=== PATIENT | male | born 1955 | race African-American/Black ===

== ENCOUNTER 2018-09-30 12:46 | Emergency (ER) | payer OTHER ==
[2018-09-30] MEDS: IPRATROPIUM (NEB) 0.5 MG/2.5 ML AMP INH (14:13)
[2018-09-30] MEDS: ALBUTEROL 0.083% (NEB) 2.5 MG/3 ML AMP INH (14:13)
[2018-09-30 14:14] LABS: ADD MAN DIFF? NO
[2018-09-30 14:19] LABS: WHITE BLOOD COUNT 8.9 10^3/ul (4.8-10.8)
[2018-09-30 14:19] LABS: BASOPHIL # 0.1 10^3/ul (0.0-0.1); BASOPHILS % 0.9 % (0.0-2.0); EOSINOPHILS # 0.1 10^3/ul (0.0-0.5); EOSINOPHILS % 1.1 % (0.0-7.0); HEMATOCRIT 33.8 % (42.0-52.0); HEMOGLOBIN 10.5 g/dl (14.0-18.0); LYMPHOCYTES # 0.8 10^3/ul (0.8-2.9); LYMPHOCYTES % 8.5 % (15.0-51.0); MEAN CORPUSCULAR HEMOGLOBIN 31.9 pg (29.0-33.0); MEAN CORPUSCULAR HGB CONC 31.1 g/dl (32.0-37.0); MEAN CORPUSCULAR VOLUME 102.7 fl (82.0-101.0); MEAN PLATELET VOLUME 9.8 fl (7.4-10.4); MONOCYTE # 1.3 10^3/ul (0.3-0.9); MONOCYTES % 14.9 % (0.0-11.0); NEUTROPHIL # 6.6 10^3/ul (1.6-7.5); NEUTROPHILS % 74.2 % (39.0-77.0); PLATELET COUNT 333 10^3/UL (140-415); RED BLOOD COUNT 3.29 10^6/ul (4.70-6.10); RED CELL DISTRIBUTION WIDTH 15.7 % (11.5-14.5)
[2018-09-30 14:22] LABS: ADD UMIC YES; UR ASCORBIC ACID 40 mg/dL (NEGATIVE); UR BILIRUBIN (Dip) NEGATIVE (NEGATIVE); UR BLOOD (Dip) NEGATIVE (NEGATIVE); UR CLARITY SLIGHTLY CLOUDY (CLEAR); UR COLOR YELLOW (YELLOW); UR GLUCOSE (Dip) 1+ mg/dL (NEGATIVE); UR KETONES (Dip) NEGATIVE (NEGATIVE); UR LEUKOCYTE ESTERASE (Dip) NEGATIVE Leu/ul (NEGATIVE); UR NITRITE (Dip) NEGATIVE (NEGATIVE); UR RBC 3 /HPF (0-5); UR SPECIFIC GRAVITY (Dip) 1.019 (1.003-1.030); UR TOTAL PROTEIN (Dip) 1+ mg/dl (NEGATIVE); UR UROBILINOGEN (Dip) NEGATIVE (NEGATIVE); UR WBC 1 /HPF (0-5)
[2018-09-30 14:25] LABS: MODE NASAL CANNULA; MetHgb Venous 0.3 %; Sample Type Blood venous; Site VENOUS LINE; Venous COHb 0.2 %; Venous Fraction OxyHgb 65.2 %; Venous Oxygen Sat 65.5 mmHG (55.0-75.0); Venous Total Hemglobin 11.7 g/dl
[2018-09-30 14:37] LABS: ALANINE AMINOTRANSFERASE 30 IU/L (13-69); ALBUMIN 3.4 g/dl (3.3-4.9); ALBUMIN/GLOBULIN RATIO 0.87; ALKALINE PHOSPHATASE 123 IU/L (42-121); ANION GAP 8 (5-13); ASPARTATE AMINO TRANSFERASE 42 IU/L (15-46); BLOOD UREA NITROGEN 42 mg/dl (7-20); CALCIUM 9.1 mg/dl (8.4-10.2); CARBON DIOXIDE 25 mmol/L (21-31); CHLORIDE 106 mmol/L (97-110); CREATININE 1.18 mg/dl (0.61-1.24); Estimated GFR > 60 mL/min (>60); GLUCOSE 207 mg/dl (70-220); POTASSIUM 5.2 mmol/L (3.5-5.1); SODIUM 139 mmol/L (135-144); TOTAL PROTEIN 7.3 g/dl (6.1-8.1)
[2018-09-30 14:48] LABS: B-TYPE NATRIURETIC PEPTIDE 5980 PG/ML (0-125); TROPONIN-I 0.054 ng/ml (0.000-0.120)
[2018-09-30] MEDS: FUROSEMIDE 40 MG INJ IV (15:26)
== END 2018-09-30 16:43 | disposition home or self-care (01) ==
LOC: E/R 12:46
DX: I11.0 Hypertensive heart disease with heart failure (principal); E11.9 Type 2 diabetes mellitus without complications; I25.2 Old myocardial infarction; I50.22 Chronic systolic (congestive) heart failure; Z79.82 Long term (current) use of aspirin; Z79.4 Long term (current) use of insulin
CPT/HCPCS: 36415; 71045; 80053; 81001; 82803; 83880; 84484; 85025; 93005; 94664; 96374; 99285-25

== ENCOUNTER 2018-10-22 17:46 | Inpatient (IN) | payer OTHER ==
[2018-10-22] MEDS: FUROSEMIDE 40 MG INJ IV (20:42)
[2018-10-22 21:43] LABS: HEMATOCRIT 32.8 % (42.0-52.0); MEAN CORPUSCULAR HEMOGLOBIN 31.3 pg (29.0-33.0); MEAN CORPUSCULAR HGB CONC 30.5 g/dl (32.0-37.0); MEAN CORPUSCULAR VOLUME 102.8 fl (82.0-101.0); MEAN PLATELET VOLUME 9.5 fl (7.4-10.4); PLATELET COUNT 244 10^3/UL (140-415); RED BLOOD COUNT 3.19 10^6/ul (4.70-6.10); RED CELL DISTRIBUTION WIDTH 15.8 % (11.5-14.5)
[2018-10-22 21:43] LABS: WHITE BLOOD COUNT 9.5 10^3/ul (4.8-10.8)
[2018-10-22 21:44] LABS: ADD MAN DIFF? YES; ADD UMIC NO; UR ASCORBIC ACID 20 mg/dL (NEGATIVE); UR BILIRUBIN (Dip) NEGATIVE (NEGATIVE); UR BLOOD (Dip) NEGATIVE (NEGATIVE); UR CLARITY CLEAR (CLEAR); UR COLOR YELLOW (YELLOW); UR GLUCOSE (Dip) NEGATIVE (NEGATIVE); UR KETONES (Dip) NEGATIVE (NEGATIVE); UR LEUKOCYTE ESTERASE (Dip) NEGATIVE Leu/ul (NEGATIVE); UR NITRITE (Dip) NEGATIVE (NEGATIVE); UR TOTAL PROTEIN (Dip) NEGATIVE (NEGATIVE); UR UROBILINOGEN (Dip) NEGATIVE (NEGATIVE)
[2018-10-22 22:03] LABS: ALANINE AMINOTRANSFERASE 21 IU/L (13-69); ALBUMIN 3.5 g/dl (3.3-4.9); ALBUMIN/GLOBULIN RATIO 0.94; ALKALINE PHOSPHATASE 107 IU/L (42-121); ASPARTATE AMINO TRANSFERASE 39 IU/L (15-46); BILIRUBIN,INDIRECT 0.3 mg/dl (0-1.1); BILIRUBIN,TOTAL 0.3 mg/dl (0.2-1.3); BLOOD UREA NITROGEN 57 mg/dl (7-20); CALCIUM 9.6 mg/dl (8.4-10.2); CHLORIDE 97 mmol/L (97-110); CREATININE 1.32 mg/dl (0.61-1.24); Estimated GFR > 60 mL/min (>60); GLUCOSE 170 mg/dl (70-220); LIPASE 39 U/L (23-300); POTASSIUM 4.8 mmol/L (3.5-5.1); SODIUM 145 mmol/L (135-144); TOTAL PROTEIN 7.2 g/dl (6.1-8.1)
[2018-10-22 22:05] LABS: INR 1.17; PT RATIO 1.2
[2018-10-22 22:06] LABS: PARTIAL THROMBOPLASTIN TIME 30.4 Sec (23.0-35.0)
[2018-10-22 22:09] LABS: ANION GAP 10 (5-13)
[2018-10-22 22:10] LABS: CARBON DIOXIDE 38 mmol/L (21-31)
[2018-10-22 22:15] LABS: B-TYPE NATRIURETIC PEPTIDE 8760 PG/ML (0-125); TROPONIN-I 0.037 ng/ml (0.000-0.120)
[2018-10-22] MEDS ORDERED: ONDANSETRON 4 MG INJ IV ×2 (22:30→23:30)
[2018-10-22] MEDS ORDERED: ACETAMINOPHEN 325 MG TAB PO (22:30)
[2018-10-22] MEDS ORDERED: NACL 0.9% 3 ML SYG IV (23:30)
[2018-10-22] MEDS: HEPARIN 5,000 UNIT/1 ML VIAL SC (23:30)
[2018-10-22] MEDS ORDERED: DOCUSATE SODIUM 100 MG CAP PO (23:30)
[2018-10-22] MEDS ORDERED: BISACODYL (EC) 5 MG TAB PO (23:30)
[2018-10-23] LABS: HAAIG REFLEX REFLEX FILED
[2018-10-23 00:08] LABS: UR RBC 2 /HPF (0-5); UR WBC 2 /HPF (0-5)
[2018-10-23 00:12] LABS: CREATININE,URINE RANDOM 31.84 mg/dl (20-370); PROTEIN/CREAT RATIO 0.72 RATIO
[2018-10-23 00:47] LABS: HEPATITIS B SURFACE ANTIGEN NEGATIVE (NEGATIVE)
[2018-10-23 01:05] LABS: HEPATITIS B SURFACE ANTIBODY NEGATIVE (NEGATIVE)
[2018-10-23 01:05] LABS: HEPATITIS B CORE ANTIBODY NEGATIVE (NEGATIVE); HEPATITIS C VIRAL ANTIBODY NEGATIVE (NEGATIVE)
[2018-10-23 05:09] LABS: RETICULOCYTE COUNT # 0.095 X10^6 (0.020-0.110); RETICULOCYTE COUNT % 2.9 % (0.5-1.5)
[2018-10-23 05:09] LABS: RETICULOCYTE RBC 3.28
[2018-10-23 05:23] LABS: IRON 89 ug/dl (35-150)
[2018-10-23 05:25] LABS: CREATINE KINASE 57 IU/L (23-200)
[2018-10-23 05:32] LABS: % IRON SATURATION 27 % SAT (22-52); TOTAL IRON BINDING CAPACITY 335 ug/dl (241-421)
[2018-10-23 05:36] LABS: HEMOGLOBIN A1C 10.8 % (0-5.9)
[2018-10-23 05:39] LABS: CK INDEX 4.4; TROPONIN-I 0.054 ng/ml (0.000-0.120)
[2018-10-23 05:41] LABS: CK-MB 2.52 ng/ml (0.0-2.4)
[2018-10-23 06:53] LABS: FOLATE > 20.0 ng/ml (2.8-20.0)
[2018-10-23] MEDS: FUROSEMIDE 40 MG INJ IV ×2 (06:54→18:10)
[2018-10-23] MEDS: HEPARIN 5,000 UNIT/1 ML VIAL SC ×3 (07:01→21:23)
[2018-10-23] MEDS ORDERED: DEXTROSE ISO OSM IV (09:00)
[2018-10-23] MEDS ORDERED: CEFEPIME HCL IV (09:00)
[2018-10-23] MEDS ORDERED: LORAZEPAM 1 MG TAB PO (09:00)
[2018-10-23] MEDS ORDERED: [UNRECOGNIZED DRUG - OTHER] IV (09:00)
[2018-10-23] MEDS ORDERED: AL HYDROX/MG HYDROX/SIMETH 30 ML CUP PO (09:00)
[2018-10-23] MEDS ORDERED: GUAIFENESIN/DM 5ML CUP PO (09:00)
[2018-10-23] MEDS ORDERED: ZOLPIDEM 5 MG TAB PO (11:00)
[2018-10-23 12:06] LABS: CREATINE KINASE 66 IU/L (23-200)
[2018-10-23] MEDS: MUPIROCIN 2% 22 GM OINT TOP ×2 (12:07→21:08)
[2018-10-23 12:12] LABS: C-REACTIVE PROTEIN 1.3 mg/dl (0.0-0.9)
[2018-10-23 12:20] LABS: CK INDEX 3.8; TROPONIN-I 0.047 ng/ml (0.000-0.120)
[2018-10-23 12:22] LABS: CK-MB 2.54 ng/ml (0.0-2.4)
[2018-10-23 13:21] LABS: ERYTHROCYTE SEDIMENTATION RATE 30 mm/Hr (0-20)
[2018-10-23] MEDS: MULTIVITAMINS/MINERALS TAB PO (13:42)
[2018-10-23] MEDS: GABAPENTIN 300 MG CAP PO ×2 (13:44→21:08)
[2018-10-23] MEDS: PANTOPRAZOLE (EC) 40 MG TAB PO (13:44)
[2018-10-23] MEDS: NEUTRA-PHOS 250 MG PACKET PO (13:45)
[2018-10-23] MEDS: ZINC SULFATE 220 MG CAP PO (13:45)
[2018-10-23] MEDS: ASPIRIN (EC) 81 MG TAB PO (13:46)
[2018-10-23] MEDS: ASCORBIC ACID 500 MG TAB PO (13:46)
[2018-10-23] MEDS: CEFEPIME 1GM/50 ML IVPB (13:47)
[2018-10-23] MEDS: ATORVASTATIN 10 MG TAB PO (21:06)
[2018-10-23] MEDS: ISOSORBIDE DINITRATE 10 MG TAB PO (21:07)
[2018-10-23] MEDS: QUETIAPINE 25 MG TAB PO (21:08)
[2018-10-24] MEDS: PIPER-TAZO 3.375 GM IV (PMX) 100 ML IVPB ×3 (00:37→11:57)
[2018-10-24 05:37] LABS: ADD MAN DIFF? NO
[2018-10-24 05:41] LABS: WHITE BLOOD COUNT 8.2 10^3/ul (4.8-10.8)
[2018-10-24 05:41] LABS: BASOPHIL # 0.1 10^3/ul (0.0-0.1); BASOPHILS % 0.7 % (0.0-2.0); EOSINOPHILS # 0.2 10^3/ul (0.0-0.5); EOSINOPHILS % 2.1 % (0.0-7.0); HEMATOCRIT 31.4 % (42.0-52.0); HEMOGLOBIN 9.6 g/dl (14.0-18.0); LYMPHOCYTES # 0.9 10^3/ul (0.8-2.9); LYMPHOCYTES % 11.1 % (15.0-51.0); MEAN CORPUSCULAR HGB CONC 30.6 g/dl (32.0-37.0); MEAN CORPUSCULAR VOLUME 101.3 fl (82.0-101.0); MEAN PLATELET VOLUME 10.3 fl (7.4-10.4); MONOCYTES % 11.8 % (0.0-11.0); NEUTROPHIL # 6.1 10^3/ul (1.6-7.5); NEUTROPHILS % 74.1 % (39.0-77.0); PLATELET COUNT 200 10^3/UL (140-415); RED CELL DISTRIBUTION WIDTH 15.9 % (11.5-14.5)
[2018-10-24] MEDS: FUROSEMIDE 40 MG INJ IV ×2 (05:44→18:01)
[2018-10-24] MEDS: PANTOPRAZOLE (EC) 40 MG TAB PO (06:06)
[2018-10-24] MEDS: GABAPENTIN 300 MG CAP PO ×3 (06:06→21:18)
[2018-10-24] MEDS: HEPARIN 5,000 UNIT/1 ML VIAL SC ×3 (06:21→21:32)
[2018-10-24 06:27] LABS: CHOLESTEROL 76 mg/dl (100-200)
[2018-10-24 06:27] LABS: CHOL/HDL RATIO 2.6 RATIO; CREATINE KINASE 40 IU/L (23-200); HDL CHOLESTEROL 29 mg/dl (30-78); LDL CHOLESTEROL,CALCULATED 34 mg/dl; TRIGLYCERIDES 64 mg/dl (0-149)
[2018-10-24 06:28] LABS: ALANINE AMINOTRANSFERASE 23 IU/L (13-69); ALBUMIN 2.2 g/dl (3.3-4.9); ALBUMIN/GLOBULIN RATIO 0.84; ALKALINE PHOSPHATASE 52 IU/L (42-121); ASPARTATE AMINO TRANSFERASE 29 IU/L (15-46); BILIRUBIN,INDIRECT 0.4 mg/dl (0-1.1); BILIRUBIN,TOTAL 0.4 mg/dl (0.2-1.3); BLOOD UREA NITROGEN 56 mg/dl (7-20); CALCIUM 8.6 mg/dl (8.4-10.2); CHLORIDE 100 mmol/L (97-110); CREATININE 1.18 mg/dl (0.61-1.24); Estimated GFR > 60 mL/min (>60); GLUCOSE 228 mg/dl (70-220); POTASSIUM 4.6 mmol/L (3.5-5.1); SODIUM 142 mmol/L (135-144); TOTAL PROTEIN 4.8 g/dl (6.1-8.1)
[2018-10-24 06:36] LABS: ANION GAP 5 (5-13); CK INDEX 4.8; CK-MB 1.93 ng/ml (0.0-2.4)
[2018-10-24 06:39] LABS: CARBON DIOXIDE 37 mmol/L (21-31)
[2018-10-24 07:27] LABS: CREATININE,URINE RANDOM 34.13 mg/dl (20-370)
[2018-10-24 07:27] LABS: SODIUM,URINE RANDOM 83 mmol/L (30-90)
[2018-10-24] MEDS: MULTIVITAMINS/MINERALS TAB PO (09:47)
[2018-10-24] MEDS: MUPIROCIN 2% 22 GM OINT TOP ×2 (09:47→20:31)
[2018-10-24] MEDS: ASPIRIN (EC) 81 MG TAB PO (09:47)
[2018-10-24] MEDS: NEUTRA-PHOS 250 MG PACKET PO (09:47)
[2018-10-24] MEDS: ASCORBIC ACID 500 MG TAB PO (09:48)
[2018-10-24] MEDS: ZINC SULFATE 220 MG CAP PO (09:48)
[2018-10-24] MEDS: ISOSORBIDE DINITRATE 10 MG TAB PO ×3 (09:48→20:32)
[2018-10-24] MEDS: ACETAMINOPHEN 325 MG TAB PO (09:54)
[2018-10-24] MEDS: HYDROCODONE/APAP (5/325) TAB PO (13:35)
[2018-10-24] MEDS: QUETIAPINE 25 MG TAB PO (20:31)
[2018-10-24] MEDS: ATORVASTATIN 10 MG TAB PO (20:31)
[2018-10-25 05:58] LABS: ADD MAN DIFF? NO
[2018-10-25] MEDS: PANTOPRAZOLE (EC) 40 MG TAB PO (06:00)
[2018-10-25] MEDS: HEPARIN 5,000 UNIT/1 ML VIAL SC ×2 (06:00→20:42)
[2018-10-25] MEDS: GABAPENTIN 300 MG CAP PO ×3 (06:20→22:36)
[2018-10-25] MEDS: FUROSEMIDE 40 MG TAB PO ×2 (06:20→18:09)
[2018-10-25 06:36] LABS: WHITE BLOOD COUNT 7.9 10^3/ul (4.8-10.8)
[2018-10-25 06:36] LABS: BASOPHIL # 0.1 10^3/ul (0.0-0.1); BASOPHILS % 0.8 % (0.0-2.0); EOSINOPHILS # 0.4 10^3/ul (0.0-0.5); EOSINOPHILS % 4.8 % (0.0-7.0); HEMATOCRIT 30.5 % (42.0-52.0); HEMOGLOBIN 9.3 g/dl (14.0-18.0); LYMPHOCYTES # 0.8 10^3/ul (0.8-2.9); LYMPHOCYTES % 9.8 % (15.0-51.0); MEAN CORPUSCULAR HEMOGLOBIN 30.8 pg (29.0-33.0); MEAN CORPUSCULAR HGB CONC 30.5 g/dl (32.0-37.0); MEAN PLATELET VOLUME 10.5 fl (7.4-10.4); MONOCYTE # 0.8 10^3/ul (0.3-0.9); MONOCYTES % 10.5 % (0.0-11.0); NEUTROPHIL # 5.9 10^3/ul (1.6-7.5); NEUTROPHILS % 73.7 % (39.0-77.0); PLATELET COUNT 197 10^3/UL (140-415); RED BLOOD COUNT 3.02 10^6/ul (4.70-6.10); RED CELL DISTRIBUTION WIDTH 15.5 % (11.5-14.5)
[2018-10-25 07:07] LABS: ALANINE AMINOTRANSFERASE 18 IU/L (13-69); ALBUMIN 2.9 g/dl (3.3-4.9); ALKALINE PHOSPHATASE 72 IU/L (42-121); ANION GAP 8 (5-13); ASPARTATE AMINO TRANSFERASE 24 IU/L (15-46); BILIRUBIN,INDIRECT 0.2 mg/dl (0-1.1); BILIRUBIN,TOTAL 0.2 mg/dl (0.2-1.3); BLOOD UREA NITROGEN 49 mg/dl (7-20); CHLORIDE 95 mmol/L (97-110); CREATININE 1.22 mg/dl (0.61-1.24); Estimated GFR > 60 mL/min (>60); GLUCOSE 274 mg/dl (70-220); POTASSIUM 4.1 mmol/L (3.5-5.1); SODIUM 143 mmol/L (135-144); TOTAL PROTEIN 6.1 g/dl (6.1-8.1)
[2018-10-25 07:16] LABS: CARBON DIOXIDE 40 mmol/L (21-31)
[2018-10-25] MEDS: MULTIVITAMINS/MINERALS TAB PO (08:59)
[2018-10-25] MEDS: NEUTRA-PHOS 250 MG PACKET PO (08:59)
[2018-10-25] MEDS: ZINC SULFATE 220 MG CAP PO (08:59)
[2018-10-25] MEDS: ISOSORBIDE DINITRATE 10 MG TAB PO ×3 (09:00→20:19)
[2018-10-25] MEDS: ASPIRIN (EC) 81 MG TAB PO (09:00)
[2018-10-25] MEDS: ASCORBIC ACID 500 MG TAB PO (09:00)
[2018-10-25] MEDS: MUPIROCIN 2% 22 GM OINT TOP ×2 (09:01→20:22)
[2018-10-25] MEDS ORDERED: FUROSEMIDE 20 MG TAB PO (11:00)
[2018-10-25] MEDS ORDERED: GLUCOSE GEL 15 GRAM TUBE BUCCAL (11:30)
[2018-10-25] MEDS ORDERED: FUROSEMIDE 40 MG INJ (11:30)
[2018-10-25] MEDS ORDERED: GLUCOSE GEL 15 GRAM TUBE PO ×2 (11:30)
[2018-10-25] MEDS ORDERED: FUROSEMIDE 40 MG INJ IV (11:30)
[2018-10-25] MEDS ORDERED: GLUCAGON 1 MG INJ IM (11:30)
[2018-10-25] MEDS ORDERED: DEXTROSE 50% 50 ML SYRINGE IV ×2 (11:30)
[2018-10-25] MEDS: INSULIN ASPART [NOVOLOG] 3 ML PEN SC ×3 (12:00→20:43)
[2018-10-25] MEDS: FUROSEMIDE 20 MG TAB PO (12:24)
[2018-10-25] MEDS: HYDROCODONE/APAP (5/325) TAB PO (13:06)
[2018-10-25] MEDS: LEVALBUTEROL (NEB) 1.25 MG/0.5 ML AMP INH (14:29)
[2018-10-25 15:30] LABS: CREATININE, RANDOM URINE 35 mg/dL (20-320); MICROALBUMIN 4.9 mg/dL; MICROALBUMIN/CREATININE RATIO 140 (<30)
[2018-10-25] MEDS: ATORVASTATIN 10 MG TAB PO (20:19)
[2018-10-25] MEDS: QUETIAPINE 25 MG TAB PO (20:19)
[2018-10-26] MEDS: ACCU-CHEK XX (01:04)
[2018-10-26] MEDS: FUROSEMIDE 40 MG TAB PO (05:48)
[2018-10-26] MEDS: GABAPENTIN 300 MG CAP PO ×2 (05:48→12:30)
[2018-10-26] MEDS: PANTOPRAZOLE (EC) 40 MG TAB PO (05:51)
[2018-10-26 06:10] LABS: ADD MAN DIFF? NO
[2018-10-26 06:17] LABS: BASOPHIL # 0.1 10^3/ul (0.0-0.1); EOSINOPHILS # 0.4 10^3/ul (0.0-0.5); EOSINOPHILS % 5.7 % (0.0-7.0); HEMOGLOBIN 9.9 g/dl (14.0-18.0); LYMPHOCYTES # 0.9 10^3/ul (0.8-2.9); LYMPHOCYTES % 11.7 % (15.0-51.0); MEAN CORPUSCULAR HEMOGLOBIN 31.1 pg (29.0-33.0); MEAN CORPUSCULAR HGB CONC 30.9 g/dl (32.0-37.0); MEAN CORPUSCULAR VOLUME 100.6 fl (82.0-101.0); MEAN PLATELET VOLUME 10.5 fl (7.4-10.4); MONOCYTE # 0.9 10^3/ul (0.3-0.9); MONOCYTES % 11.7 % (0.0-11.0); NEUTROPHIL # 5.4 10^3/ul (1.6-7.5); NEUTROPHILS % 69.5 % (39.0-77.0); PLATELET COUNT 198 10^3/UL (140-415); RED BLOOD COUNT 3.18 10^6/ul (4.70-6.10); RED CELL DISTRIBUTION WIDTH 15.4 % (11.5-14.5)
[2018-10-26 06:17] LABS: WHITE BLOOD COUNT 7.8 10^3/ul (4.8-10.8)
[2018-10-26 07:33] LABS: ALANINE AMINOTRANSFERASE 23 IU/L (13-69); ALBUMIN 3.3 g/dl (3.3-4.9); ALBUMIN/GLOBULIN RATIO 0.94; ALKALINE PHOSPHATASE 79 IU/L (42-121); ANION GAP 10 (5-13); ASPARTATE AMINO TRANSFERASE 30 IU/L (15-46); BILIRUBIN,INDIRECT 0.3 mg/dl (0-1.1); BILIRUBIN,TOTAL 0.3 mg/dl (0.2-1.3); BLOOD UREA NITROGEN 39 mg/dl (7-20); CALCIUM 9.2 mg/dl (8.4-10.2); CARBON DIOXIDE 39 mmol/L (21-31); CHLORIDE 94 mmol/L (97-110); CREATININE 1.11 mg/dl (0.61-1.24); Estimated GFR > 60 mL/min (>60); GLUCOSE 188 mg/dl (70-220); POTASSIUM 4.2 mmol/L (3.5-5.1); SODIUM 143 mmol/L (135-144); TOTAL PROTEIN 6.8 g/dl (6.1-8.1)
[2018-10-26] MEDS: ASCORBIC ACID 500 MG TAB PO (09:17)
[2018-10-26] MEDS: MULTIVITAMINS/MINERALS TAB PO (09:17)
[2018-10-26] MEDS: NEUTRA-PHOS 250 MG PACKET PO (09:17)
[2018-10-26] MEDS: ZINC SULFATE 220 MG CAP PO (09:17)
[2018-10-26] MEDS: ISOSORBIDE DINITRATE 10 MG TAB PO ×2 (09:17→12:31)
[2018-10-26] MEDS: ASPIRIN (EC) 81 MG TAB PO (09:18)
[2018-10-26] MEDS: INSULIN ASPART [NOVOLOG] 3 ML PEN SC ×3 (09:28→12:36)
[2018-10-26] MEDS: HEPARIN 5,000 UNIT/1 ML VIAL SC (09:28)
[2018-10-26] MEDS: MUPIROCIN 2% 22 GM OINT TOP (09:30)
[2018-10-26] MEDS: ACETAZOLAMIDE 500 MG INJ IV (10:00)
[2018-10-26] MEDS: LEVALBUTEROL (NEB) 1.25 MG/0.5 ML AMP INH ×2 (10:07→14:17)
[2018-10-26] MEDS ORDERED: FUROSEMIDE 20 MG TAB (12:46)
[2018-10-26] MEDS: HYDROCODONE/APAP (5/325) TAB PO (12:52)
[2018-10-26] MEDS: FUROSEMIDE 20 MG TAB PO (12:52)
== END 2018-10-26 16:46 | DRG 291 ==
LOC: 6WM 22:25 → E/R 17:46
DX: I13.0 Hypertensive heart and chronic kidney disease with heart failure and stage 1 through stage 4 chronic kidney disease, or unspecified chronic kidney disease (principal); I50.23 Acute on chronic systolic (congestive) heart failure; N17.9 Acute kidney failure, unspecified; E87.3 Alkalosis; E87.0 Hyperosmolality and hypernatremia; D50.9 Iron deficiency anemia, unspecified; E78.5 Hyperlipidemia, unspecified; E11.22 Type 2 diabetes mellitus with diabetic chronic kidney disease; E11.51 Type 2 diabetes mellitus with diabetic peripheral angiopathy without gangrene; E66.3 Overweight; F99 Mental disorder, not otherwise specified; I25.10 Atherosclerotic heart disease of native coronary artery without angina pectoris; K80.20 Calculus of gallbladder without cholecystitis without obstruction; N18.9 Chronic kidney disease, unspecified; N50.89 Other specified disorders of the male genital organs; R60.1 Generalized edema; Z68.29 Body mass index [BMI] 29.0-29.9, adult; I25.2 Old myocardial infarction; Z99.81 Dependence on supplemental oxygen; Z87.891 Personal history of nicotine dependence; Z79.01 Long term (current) use of anticoagulants; Z79.82 Long term (current) use of aspirin; Z79.4 Long term (current) use of insulin
CPT/HCPCS: 71045; 71250; 72149; 74176; 76700; 76870; 80053; 80061; 81003; 82043; 82550; 82553; 82570; 82607; 82728; 82746; 82962; 83036; 83540; 83690; 83735; 83880; 84155; 84300; 84443; 84484; 85025; 85045; 85610; 85651; 85730; 86140; 86704; 86706; 86709; 86803; 87081; 87340; 93005; 93306; 94640; 94664; 96374; 97162; 99285-25